=== PATIENT | male | born 1985 | race Caucasian/White ===

== ENCOUNTER 2016-09-17 23:10 | Emergency (ER) | payer MEDICAID ==
[~2016-09-17] VITALS: Ht 182.9 cm; Wt 79.4 kg
[2016-09-17 23:15] VITALS: BP 120/72
--- NOTE | 2016-09-17 23:28 | NUR ---
TO ER BED 3
[2016-09-17] MEDS ORDERED: VANCOMYCIN 1,000 MG in DEXTROSE 5% 250 ML IV ONE (23:45)
[2016-09-17] MEDS ORDERED: IBUPROFEN 600 MG TAB PO ONE (23:50)
[2016-09-17] MEDS ORDERED: HYDROcodone/APAP 10/325 MG 1 TAB TAB PO ONE (23:50)
[2016-09-17] MEDS ORDERED: VANCOMYCIN 1,000 MG VIAL ONE (23:53)
--- NOTE | 2016-09-18 00:34 | NUR ---
31 Y/O M W/C/O REDNESS, SWELLING , PAIN ON HIS LEFT SIDE HEAD FOR 3 DAYS. DENIES ANY SOB,FEVER, CHILLS, OR N/V. NO S/S OF DISTRESS NOTED AT THIS MOMENT.
--- NOTE | 2016-09-18 01:10 | NUR ---
PT RESTING IN BED, ON MONITOR, RECEIVING IV ANTIBIOTICS.
[2016-09-18 01:57] VITALS: BP 113/72
--- NOTE | 2016-09-18 01:57 | NUR ---
Patient discharged with v/s stable. Written and verbal after care instructions given and explained. Patient alert, oriented and verbalized understanding of instructions. Ambulatory with steady gait. All questions addressed prior to discharge. ID band removed. Patient advised to follow up with PMD IN 1-2 DAYS OR RETURN TO ER IF CONDITION WORSENS. Rx of MOTRIN, KEFLEX, BACTRIM, AND NORCO given. Patient educated on indication of medication including possible reaction and side effects. Opportunity to ask questions provided and answered.
[2016-09-20] MEDS ORDERED: MOTRIN600 MG PO (21:52)
[2016-09-20] MEDS ORDERED: BACTRIM DS 800/1 TAB PO (21:52)
[2016-09-20] MEDS ORDERED: NORCO 5/325 MG1 TAB PO (21:52)
[2016-09-20] MEDS ORDERED: KEFLEX250 MG PO (21:52)
[2016-09-24] MEDS ORDERED: BACTRIM DS 800/1 TAB PO (12:45)
[2016-09-24] MEDS ORDERED: NORCO 325 MG-51 TAB PO (14:12)
== END 2016-09-18 01:57 | disposition home or self-care (01) ==
LOC: MED 23:10
DX: L03.811 Cellulitis of head [any part, except face] (principal); F17.200 Nicotine dependence, unspecified, uncomplicated
CPT/HCPCS: 36415; 80053; 83605; 85025; 87040; 96365; 96366; 99285; J3370; J7060

== ENCOUNTER 2016-09-18 20:58 | Emergency (ER) | payer MEDICAID ==
[~2016-09-18] VITALS: Ht 182.9 cm; Wt 79.4 kg
--- NOTE | 2016-09-18 21:10 | NUR ---
PATIENT LEFT WITHOUT BEING SEEN BY DR. Conteh. NO FURTHER CARE PROVIDED FOR PATIENT.
[2016-09-18 21:50] VITALS: BP 120/76
--- NOTE | 2016-09-18 22:04 | NUR ---
Patient ambulated to bed 04.
--- NOTE | 2016-09-18 22:05 | NUR ---
PATIENT PRESENTS TO ED WITH Recheck abscess to back of head . PT DENIES N/V/D; SKIN IS PINK/WARM/DRY; AAOX4 WITH EVEN AND STEADY GAIT; LUNGS CLEAR BL; HR EVEN AND REGULAR; PT DENIES ANY FEVER, CP, SOB, OR COUGH AT THIS TIME; PATIENT STATES PAIN OF 8/10 AT THIS TIME; VSS; PATIENT POSITIONED FOR COMFORT; HOB ELEVATED; BEDRAILS UP X2; BED DOWN. ER MD MADE AWARE OF PT STATUS.
--- NOTE | 2016-09-18 22:06 | NUR ---
Dr. Conteh evaluating patient at bedside.
[2016-09-18] MEDS ORDERED: LIDOCAINE/EPI 1% 1:100000 20 ML VIAL INJ ONE (22:10)
[2016-09-18 22:54] VITALS: BP 118/79
--- NOTE | 2016-09-18 22:54 | NUR ---
Patient discharged with v/s stable. Written and verbal after care instructions given and explained. Patient verbalized understanding. Ambulatory with steady gait. All questions addressed prior to discharge. Advised to follow up with PMD.
[2016-09-20] MEDS ORDERED: NORCO 5/325 MG1 TAB PO (21:52)
[2016-09-20] MEDS ORDERED: BACTRIM DS 800/1 TAB PO (21:52)
[2016-09-20] MEDS ORDERED: KEFLEX250 MG PO (21:52)
[2016-09-20] MEDS ORDERED: MOTRIN600 MG PO (21:52)
[2016-09-24] MEDS ORDERED: BACTRIM DS 800/1 TAB PO (12:45)
[2016-09-24] MEDS ORDERED: NORCO 325 MG-51 TAB PO (14:12)
== END 2016-09-18 22:54 | disposition home or self-care (01) ==
LOC: MED 20:58
DX: L02.811 Cutaneous abscess of head [any part, except face] (principal)
CPT/HCPCS: 10060; 99283; J2001

== ENCOUNTER 2016-09-20 19:34 | Inpatient (IN) | payer SELFPAY ==
[~2016-09-20] VITALS: Ht 182.9 cm; Wt 78.9 kg
[2016-09-20 19:54] VITALS: BP 112/57
[2016-09-20] MEDS ORDERED: NACL 0.9% 1,000 ML IV SCH (21:22)
[2016-09-20] MEDS ORDERED: KETOROLAC 30 MG/ML VIAL IVP ONE (21:25)
[2016-09-20] MEDS ORDERED: cefTRIAXone 1,000 MG in DEXT 5% MINI-BAG PLUS 50 ML IV ONE (21:25)
[2016-09-20] MEDS ORDERED: cefTRIAXone 1,000 MG VIAL ONE (21:40)
[2016-09-20 21:52] LABS: BASOPHILS # (AUTO) 0.1 K/uL (0.00-0.22); BASOPHILS % (AUTO) 1.3 % (0.0-2.0); EOSINOPHILS # (AUTO) 0.2 K/uL (0-0.4); EOSINOPHILS % (AUTO) 2.9 % (0.0-4.0); HEMATOCRIT 41.9 % (36-52); LYMPHOCYTES # (AUTO) 2.7 K/uL (2.0-11.5); LYMPHOCYTES % (AUTO) 33.6 % (20.5-51.1); MEAN CORPUSCULAR HEMOGLOBIN 30 pg (27-31); MEAN CORPUSCULAR HGB CONC 33 g/dL (33-37); MEAN CORPUSCULAR VOLUME 89 fL (80-94); MONOCYTES # (AUTO) 0.5 K/uL (0.8-1.0); MONOCYTES % (AUTO) 5.8 % (1.7-9.3); NEUTROPHILS # (AUTO) 4.5 K/uL (1.8-7.7); NEUTROPHILS % (AUTO) 56.4 % (42.2-75.2); PLATELET COUNT (AUTO) 309 K/uL (140-450); RED BLOOD CELL COUNT(AUTO) 4.72 MIL/uL (4.20-6.10); RED CELL DISTRIBUTION WIDTH 12.6 % (11.6-13.7)
[2016-09-20] MEDS ORDERED: CEPH250C16 PO (21:52)
[2016-09-20] MEDS ORDERED: HYDR-4446 PO (21:52)
[2016-09-20] MEDS ORDERED: SULF1TAB12 PO (21:52)
[2016-09-20] MEDS ORDERED: IBUP-2213 PO (21:52)
[2016-09-20 22:07] LABS: ANION GAP 14.6 (8-16); CALCIUM 8.6 mg/dL (8.5-10.1); CARBON DIOXIDE 27.4 mmol/L (21-32); CREATININE 1.1 mg/dL (0.6-1.3)
[2016-09-20 22:12] LABS: INR 1.1 (0.8-1.2); PARTIAL THROMBOPLASTIN TIME 27.8 secs (22-35.6)
[2016-09-20 22:14] LABS: ALBUMIN 4.1 g/dL (3.4-5.0); TOTAL BILIRUBIN 0.4 mg/dL (0.0-1.0); TOTAL PROTEIN, SERUM 8.1 g/dL (6.4-8.2)
[2016-09-20 22:29] LABS: LACTIC ACID 0.8 mmol/L (0.4-2.0)
[2016-09-20 23:25] VITALS: BP 115/65
[2016-09-21] MEDS ORDERED: NACL 0.9% 1,000 ML IV SCH (05:18)
[2016-09-21] MEDS ORDERED: MORPHINE SULFATE 2 MG/ML SYR IVP PRN (05:20)
[2016-09-21] MEDS ORDERED: ACETAMINOPHEN 325 MG TAB PO PRN (05:20)
[2016-09-21] MEDS ORDERED: HYDROcodone/APAP 5/325 MG 1 TAB TAB PO PRN (05:20)
[2016-09-21] MEDS ORDERED: ONDANSETRON 4 MG/2 ML VIAL IVP PRN (05:20)
[2016-09-21 06:41] LABS: INR 1.1 (0.8-1.2); PARTIAL THROMBOPLASTIN TIME 28.1 secs (22-35.6)
[2016-09-21 06:43] LABS: CHOL/HDL RATIO 2.7 (1-4.5)
[2016-09-21 07:11] LABS: THYROID STIMULATING HORMONE 1.42 uIU/mL (0.34-3.76)
[2016-09-21 08:00] VITALS: BP 90/59
[2016-09-21 16:00] VITALS: BP 103/33
[2016-09-21] MEDS: NACL 0.9% 1,000 ML IV SCH (16:53)
[2016-09-21 22:41] LABS: APPEARANCE,URINE CLEAR (CLEAR); BILIRUBIN,URINE NEGATIVE (NEGATIVE); BLOOD, URINE NEGATIVE (NEGATIVE); COLOR,URINE YELLOW (YELLOW); LEUKOCYTE ESTERASE ,URINE NEGATIVE (NEGATIVE); NITRITE, URINE NEGATIVE (NEGATIVE); PROTEIN,URINE NEGATIVE (NEGATIVE); UGLUCOSE NEGATIVE (NEGATIVE); UROBILINOGEN,URINE 0.2 EU/dL (0.2 - 1)
[2016-09-22] VITALS: BP 109/64
[2016-09-22 02:09] LABS: BACTERIA,URINE None Seen /HPF (None Seen); RBC,URINE NONE SEEN /HPF (0-5); SQUAMOUS EPITHELIAL CELL,UR 0-3 (FEW) /LPF (0-3 (FEW)); WBC,URINE NONE SEEN /HPF (0-5)
[2016-09-22 06:07] LABS: BASOPHILS # (AUTO) 0.2 K/uL (0.00-0.22); BASOPHILS % (AUTO) 4.1 % (0.0-2.0); EOSINOPHILS # (AUTO) 0.2 K/uL (0-0.4); HEMATOCRIT 38.3 % (36-52); HEMOGLOBIN 12.6 g/dL (12.0-18.0); LYMPHOCYTES # (AUTO) 1.8 K/uL (2.0-11.5); LYMPHOCYTES % (AUTO) 39.1 % (20.5-51.1); MEAN CORPUSCULAR HEMOGLOBIN 30 pg (27-31); MEAN CORPUSCULAR HGB CONC 33 g/dL (33-37); MEAN CORPUSCULAR VOLUME 90 fL (80-94); MONOCYTES # (AUTO) 0.3 K/uL (0.8-1.0); MONOCYTES % (AUTO) 7.6 % (1.7-9.3); NEUTROPHILS % (AUTO) 44.2 % (42.2-75.2); PLATELET COUNT (AUTO) 268 K/uL (140-450); RED BLOOD CELL COUNT(AUTO) 4.26 MIL/uL (4.20-6.10); RED CELL DISTRIBUTION WIDTH 12.6 % (11.6-13.7); WHITE BLOOD COUNT (AUTO) 4.5 K/uL (4.8-10.8)
[2016-09-22 06:20] LABS: ANION GAP 9.1 (8-16); CALCIUM 7.8 mg/dL (8.5-10.1); CARBON DIOXIDE 28.4 mmol/L (21-32); CREATININE 0.9 mg/dL (0.6-1.3); POTASSIUM 4.5 mmol/L (3.5-5.1)
[2016-09-22 06:32] LABS: MAGNESIUM 2.1 mg/dL (1.8-2.4); PHOSPHORUS 3.2 mg/dL (2.5-4.9)
[2016-09-22 07:35] VITALS: BP 110/65
[2016-09-22 08:55] LABS: AMPHETAMINE, URINE POS. ng/ml (NEG <=1000); BARBITURATE, URINE NEG. ng/ml (NEG <=200); BENZODIAZEPINE, URINE NEG. ng/mL (NEG <=200); CANNABINOID, URINE POS. ng/mL (NEG <=50); COCAINE, URINE NEG. ng/mL (NEG <=300); OPIATE, URINE NEG. ng/mL (NEG <=2000); PHENCYCLIDINE SCREEN,URINE NEG. ng/mL (NEG <=25)
[2016-09-22] MEDS: CLINDAMYCIN 600 MG in DEXTROSE 5% 50 ML IV SCH ×2 (09:13→16:06)
[2016-09-22] MEDS ORDERED: HYDROGEN PEROXIDE 3% 240 ML BTL TP ONE (10:02)
[2016-09-22] MEDS ORDERED: BUPIVACAINE-MPF/EPI 0.25% 30 ML VIAL INJ ONE (10:03)
[2016-09-22] MEDS ORDERED: ONDANSETRON 4 MG/2 ML VIAL ONE (10:12)
[2016-09-22] MEDS ORDERED: SEVOFLURANE 250 ML BTL INH ONE (10:12)
[2016-09-22] MEDS ORDERED: KETOROLAC 30 MG/ML VIAL ONE (10:12)
[2016-09-22] MEDS ORDERED: DEXAMETHASONE 4 MG/ML VIAL ONE (10:12)
[2016-09-22] MEDS ORDERED: fentaNYL 0.05 MG/ML VIAL ONE (10:12)
[2016-09-22] MEDS ORDERED: HYDROmorphone 1 MG/ML AMP IVP PRN (10:35)
[2016-09-22] MEDS ORDERED: ONDANSETRON 4 MG/2 ML VIAL IVP PRN (10:35)
[2016-09-22 11:46] LABS: T4 (THYROXINE) 6.8 ug/dL (4.5-12.0)
[2016-09-22 16:00] VITALS: BP 102/48
[2016-09-22] MEDS: NACL 0.9% 1,000 ML IV SCH (17:19)
[2016-09-23] VITALS: BP 100/52
[2016-09-23] MEDS: CLINDAMYCIN 600 MG in DEXTROSE 5% 50 ML IV SCH ×2 (01:10→08:29)
[2016-09-23 06:23] LABS: BASOPHILS # (AUTO) 0.1 K/uL (0.00-0.22); BASOPHILS % (AUTO) 1.1 % (0.0-2.0); EOSINOPHILS # (AUTO) 0.1 K/uL (0-0.4); EOSINOPHILS % (AUTO) 1.6 % (0.0-4.0); HEMATOCRIT 37.8 % (36-52); HEMOGLOBIN 12.6 g/dL (12.0-18.0); LYMPHOCYTES # (AUTO) 2.3 K/uL (2.0-11.5); LYMPHOCYTES % (AUTO) 28.2 % (20.5-51.1); MEAN CORPUSCULAR HEMOGLOBIN 30 pg (27-31); MEAN CORPUSCULAR HGB CONC 33 g/dL (33-37); MEAN CORPUSCULAR VOLUME 90 fL (80-94); MONOCYTES # (AUTO) 0.7 K/uL (0.8-1.0); MONOCYTES % (AUTO) 8.9 % (1.7-9.3); NEUTROPHILS % (AUTO) 60.2 % (42.2-75.2); PLATELET COUNT (AUTO) 282 K/uL (140-450); RED BLOOD CELL COUNT(AUTO) 4.22 MIL/uL (4.20-6.10); RED CELL DISTRIBUTION WIDTH 12.3 % (11.6-13.7); WHITE BLOOD COUNT (AUTO) 8.2 K/uL (4.8-10.8)
[2016-09-23 06:44] LABS: CALCIUM 7.9 mg/dL (8.5-10.1); CARBON DIOXIDE 27.8 mmol/L (21-32); CREATININE 0.9 mg/dL (0.6-1.3); POTASSIUM 3.8 mmol/L (3.5-5.1)
[2016-09-23 08:00] VITALS: BP 123/48
[2016-09-23 08:09] LABS: PHOSPHORUS 3.5 mg/dL (2.5-4.9)
[2016-09-23] MEDS: NICOTINE TRANSD SYS 7 MG/24 HR PATCH TD SCH (08:31)
[2016-09-23 16:00] VITALS: BP 113/71
[2016-09-23] MEDS ORDERED: GAUZE TP PRN (16:20)
[2016-09-23] MEDS: NACL 0.9% 1,000 ML IV SCH (16:45)
[2016-09-23] MEDS ORDERED: MAGNESIUM HYDROXIDE 2400 MG/30 ML UDC PO PRN (17:15)
[2016-09-23] MEDS ORDERED: INSULIN LISPRO SLIDING SCALE 100 UNITS/ML VIAL SUBQ PRN (21:05)
[2016-09-24] VITALS: BP 115/70
[2016-09-24 07:27] LABS: BASOPHILS # (AUTO) 0.1 K/uL (0.00-0.22); BASOPHILS % (AUTO) 2.4 % (0.0-2.0); EOSINOPHILS # (AUTO) 0.2 K/uL (0-0.4); EOSINOPHILS % (AUTO) 3.5 % (0.0-4.0); HEMATOCRIT 43.1 % (36-52); HEMOGLOBIN 14.4 g/dL (12.0-18.0); LYMPHOCYTES # (AUTO) 2.5 K/uL (2.0-11.5); LYMPHOCYTES % (AUTO) 46.7 % (20.5-51.1); MEAN CORPUSCULAR HEMOGLOBIN 30 pg (27-31); MEAN CORPUSCULAR HGB CONC 33 g/dL (33-37); MEAN CORPUSCULAR VOLUME 90 fL (80-94); MONOCYTES # (AUTO) 0.5 K/uL (0.8-1.0); MONOCYTES % (AUTO) 9.4 % (1.7-9.3); PLATELET COUNT (AUTO) 303 K/uL (140-450); RED CELL DISTRIBUTION WIDTH 12.4 % (11.6-13.7); WHITE BLOOD COUNT (AUTO) 5.3 K/uL (4.8-10.8)
[2016-09-24 07:28] LABS: ANION GAP 9.8 (8-16); CALCIUM 8.1 mg/dL (8.5-10.1); CARBON DIOXIDE 29.8 mmol/L (21-32); CREATININE 0.9 mg/dL (0.6-1.3); POTASSIUM 4.6 mmol/L (3.5-5.1)
[2016-09-24] MEDS: BLOOD GLUCOSE MONITORING 1 DEV DEV FS SCH ×2 (07:34→11:45)
[2016-09-24 07:57] VITALS: BP 110/57
[2016-09-24] MEDS: NICOTINE TRANSD SYS 7 MG/24 HR PATCH TD SCH (08:45)
[2016-09-24] MEDS ORDERED: SULF1TAB12 PO (12:45)
[2016-09-24] MEDS ORDERED: GAUZE TP SCH (13:00)
[2016-09-24] MEDS ORDERED: ACET-2869 PO (14:12)
== END 2016-09-24 14:27 | disposition home or self-care (01) | DRG 571 ==
LOC: MED 19:34 → MTU 22:45
PROVIDERS: ADMIT Family Medicine; ATTEND Family Medicine
PROC: 0JB00ZZ Excision of Scalp Subcutaneous Tissue and Fascia, Open Approach (ICD-10-PCS; principal; 2016-09-22 10:00)
DX: L03.811 Cellulitis of head [any part, except face] (principal); E44.0 Moderate protein-calorie malnutrition; L02.811 Cutaneous abscess of head [any part, except face]; F15.10 Other stimulant abuse, uncomplicated; F12.10 Cannabis abuse, uncomplicated; R00.1 Bradycardia, unspecified; L98.499 Non-pressure chronic ulcer of skin of other sites with unspecified severity; F17.210 Nicotine dependence, cigarettes, uncomplicated; D72.819 Decreased white blood cell count, unspecified; R73.03 Prediabetes; F19.10 Other psychoactive substance abuse, uncomplicated; Z68.23 Body mass index [BMI] 23.0-23.9, adult
CPT/HCPCS: 36415; 71010; 80048; 80053; 80305; 81001; 82040; 82550; 82553; 82948; 83036; 83605; 83735; 83874; 83880; 84100; 84436; 84443; 84484; 85025; 85610; 85730; 87040; 87070; 87081; 87186; 93005; 96365; 96375; 99285; J0696; J1100; J1885; J2405; J3010; J3490; J7030; J7060; Q0092

== ENCOUNTER 2016-10-11 04:39 | Emergency (ER) | payer MEDICAID ==
[~2016-10-11] VITALS: Ht 182.9 cm; Wt 81.6 kg
[~2016-10-11 04:39] MED LIST: BACTRIM DS 800/1 TAB PO; KEFLEX250 MG PO; MOTRIN600 MG PO; NORCO 325 MG-51 TAB PO; NORCO 5/325 MG1 TAB PO
[2016-10-11 05:00] VITALS: BP 135/71
--- NOTE | 2016-10-11 05:05 | NUR ---
PT TAKEN TO BED 4
--- NOTE | 2016-10-11 05:13 | NUR ---
Dr. Conteh evaluating patient at bedside.
--- NOTE | 2016-10-11 05:15 | NUR ---
CAME IN FOR WOUND CHECK ON HIS POSTERIOR LEFT SIDE OF HEAD DUE TO SURGERY THIS MONTH FROM INFECTED SPIDER BITE. 09/28 PAIN. WOUND EXAMINED BY DR. MENDOZA. DENIES ANY DRUG ALLERGIES. NO MEDICAL HISTORY. NO N/V/D.
--- NOTE | 2016-10-11 05:39 | NUR ---
WOUND CLEANING AND DRESSING DONE BY SUJEY SOUAS AT BEDSIDE.
[2016-10-11 05:45] VITALS: BP 135/71
--- NOTE | 2016-10-11 05:45 | NUR ---
Patient discharged with v/s stable. Written and verbal after care instructions given and explained. Patient verbalized understanding. Ambulatory with steady gait. All questions addressed prior to discharge. Advised to follow up with PMD. DISCHARGED PER DR. MENDOZA WITH RX BACTRIM.
== END 2016-10-11 05:45 | disposition home or self-care (01) ==
LOC: MED 04:39
DX: Z48.01 Encounter for change or removal of surgical wound dressing (principal); Z98.890 Other specified postprocedural states